=== PATIENT | female | born 1950 | race American Indian/Alaskan Native ===

== ENCOUNTER 2016-10-03 02:00 | Emergency (ER) | payer MEDICARE, BC ==
[2016-10-03 02:43] VITALS: RESP 18; TEMP 98.6
--- NOTE | 2016-10-03 02:49 | ED PDOC ---
Arrival/HPI - General Chief Complaint: Upper Extremity Problem/Injury Time Seen by Provider: 10/03/16 02:13 Historian: Patient - History of Present Illness Narrative History of Present Illness (Text): 10/03/16 02:46 66 year old female presents to the emergency department complaining of right hand pain that occurred 2 hours ago. Patient states she was cleaning when she hit her hand on the wall. She reports no allergies. Patient denies any fever, chills, chest pain, shortness of breath, nausea, vomiting, diarrhea, urinary symptoms, back pain, neck pain, headache, dizziness, or any other complaints. Time/Duration: 1-3 hours Symptom Onset: Sudden Symptom Course: Unchanged Activities at Onset: Light Context: Home Past Medical History - Provider Review Nursing Documentation Reviewed: Yes - Reproductive Menopause: Yes - Cardiac Hx Hypertension: Yes - Pulmonary Hx Respiratory Disorders: No - Neurological Hx Neurological Disorder: No - HEENT Hx HEENT Disorder: No - Renal Hx Renal Disorder: No - Endocrine/Metabolic Hx Diabetes Mellitus Type 2: Yes - Hematological/Oncological Hx Blood Disorders: No - Integumentary Hx Dermatological Disorder: No - Musculoskeletal/Rheumatological Hx Musculoskeletal Disorders: No - Gastrointestinal Hx Gastrointestinal Disorders: No - Genitourinary/Gynecological Hx Genitourinary Disorders: No - Psychiatric Hx Psychophysiologic Disorder: No Hx Substance Use: No Family/Social History - Physician Review Nursing Documentation Reviewed: Yes Family/Social History: No Known Family HX Smoking Status: Never Smoked Hx Alcohol Use: No Hx Substance Use: No Allergies/Home Meds Allergies/Adverse Reactions: Allergies No Known Allergies Allergy (Unverified 09/02/12 14:52) Home Medications: Home Meds Medication Instructions Recorded Confirmed Amlodipine Besylate/Benazepril 1 cap PO DAILY 10/03/16 [Lotrel 10-20 mg Capsule] Glipizide [Glipizide Xl] 10/03/16 Metformin HCl [Glucophage] 1,000 mg PO BID 10/03/16 10/03/16 Pioglitazone [Actos] 15 mg PO DAILY 10/03/16 10/03/16 Review of Systems - Physician Review All systems were reviewed & negative as marked: Yes - Review of Systems Constitutional: absent: Fevers, Other (Chills) Respiratory: absent: SOB Cardiovascular: absent: Chest Pain Gastrointestinal: absent: Diarrhea, Nausea, Vomiting Genitourinary Female: absent: Dysuria, Frequency, Hematuria Musculoskeletal: Other (Right hand pain). absent: Back Pain, Neck Pain Neurological: absent: Headache, Dizziness Physical Exam Vital Signs Reviewed: Yes Vital Signs Temp Pulse Resp BP Pulse Ox 10/03/16 04:00 82 18 135/84 99 10/03/16 02:38 98.6 F 84 18 139/82 100 Temperature: Afebrile Blood Pressure: Normal Pulse: Regular Respiratory Rate: Normal Appearance: Positive for: Well-Appearing, Non-Toxic, Comfortable Pain Distress: None Mental Status: Positive for: Alert and Oriented X 3 - Systems Exam Head: Present: Atraumatic, Normocephalic Pupils: Present: PERRL Extroacular Muscles: Present: EOMI Conjunctiva: Present: Normal Mouth: Present: Moist Mucous Membranes Neck: Present: Normal Range of Motion Respiratory/Chest: Present: Clear to Auscultation, Good Air Exchange. No: Respiratory Distress, Accessory Muscle Use Cardiovascular: Present: Regular Rate and Rhythm, Normal S1, S2. No: Murmurs Abdomen: Present: Normal Bowel Sounds. No: Tenderness, Distention, Peritoneal Signs Back: Present: Normal Inspection Upper Extremity: Present: Normal Inspection, Tenderness (Right hand minimal tenderness on the dorsal lateral ). No: Cyanosis, Edema Lower Extremity: Present: Normal Inspection. No: Edema Neurological: Present: GCS=15, CN II-XII Intact, Speech Normal Skin: Present: Warm, Dry, Normal Color. No: Rashes Psychiatric: Present: Alert, Oriented x 3, Normal Insight, Normal Concentration Medical Decision Making ED Course and Treatment: 10/03/16 02:46 Impression: 66 year old female present complaining of right hand pain that occurred 2 hours ago after hitting the wall. Plan: -- X-Ray Right Hand 3 View -- Reassess and disposition Progress Notes: 10/03/16 03:43 X-Ray Right Hand 3 View Impression: As read by me, fracture of the fifth metacarpal. - RAD Interpretation Radiology Orders: 10/03/16 02:45 HAND RIGHT 3 VIEWS [RAD] Stat - Medication Orders Current Medication Orders: Discontinued Medications Ibuprofen (Motrin Tab) 600 mg PO STAT STA Stop: 10/03/16 03:43 Last Admin: 10/03/16 04:12 Dose: Not Given Non-Admin Reason: Patient Refused - Scribe Statement The provider has reviewed the documentation as recorded by the Ana Mariaibjyoti Fontana All medical record entries made by the Scribe were at my direction and personally dictated by me. I have reviewed the chart and agree that the record accurately reflects my personal performance of the history, physical exam, medical decision making, and the department course for this patient. I have also personally directed, reviewed, and agree with the discharge instructions and disposition. Disposition/Present on Arrival - Present on Arrival Any Indicators Present on Arrival: No History of DVT/PE: No History of Uncontrolled Diabetes: No Urinary Catheter: No History of Decub. Ulcer: No History Surgical Site Infection Following: None - Disposition Have Diagnosis and Disposition been Completed?: Yes Diagnosis: Hand fracture, Metacarpal bone fracture Disposition: HOME/ ROUTINE Disposition Time: 03:39 Patient Plan: Discharge Condition: STABLE Discharge Instructions (ExitCare): Hand Fracture (ED) Additional Instructions: Maintain hand splint until seen by the orthopedist this week/Follow up with the orthopedist bianca Oshea Prescriptions: Ibuprofen [Motrin] 600 mg PO Q6 PRN #16 tab PRN Reason: Pain, Moderate (4-7) Referrals: Hyun Collado MD [Staff Provider] - Follow up with primary Forms: [employer] ([employer])
[2016-10-03 04:14] VITALS: BP 135/84; PULSE 82; O2SAT 99
--- NOTE | 2016-10-03 08:58 | RAD ---
PROCEDURE: Right Hand Radiographs. HISTORY: injury COMPARISON: None. FINDINGS: BONES: There is an acute oblique impacted mildly displaced fracture in the distal diaphysis of the 5th metacarpal with 1 cortex with medial displacement. There is mild dorsal angulation. JOINTS: Normal. No osteoarthritic changes. SOFT TISSUES: Soft tissue swelling overlying the 5th metacarpal. OTHER FINDINGS: None. IMPRESSION: Acute oblique impacted mildly displaced fracture in the distal diaphysis of the 5th metacarpal with 1 cortex with medial displacement and mild overlying soft tissue swelling.
== END 2016-10-03 04:00 | disposition home or self-care (01) ==
LOC: ED 02:00
DX: S62.396A Other fracture of fifth metacarpal bone, right hand, initial encounter for closed fracture (principal); W22.01XA Walked into wall, initial encounter; Y93.E9 Activity, other interior property and clothing maintenance; Y92.89 Other specified places as the place of occurrence of the external cause